=== PATIENT | female | born 1995 | race Caucasian/White ===

== ENCOUNTER 2023-03-29 18:27 | Emergency (ER) | payer OTHER, SELFPAY ==
[2023-03-29 18:45] VITALS: BP 135/85; PULSE 107; RESP 16; TEMP 37.6; O2SAT 100
[2023-03-29 18:47] VITALS: BP 135/85; PULSE 107; RESP 16; TEMP 37.6; O2SAT 100
--- NOTE | 2023-03-29 19:02 | ED.URI ---
HPI - URI/Sore Throat General Chief Complaint: Upper Respiratory Infection Stated Complaint: cold symptoms Time Seen by Provider: 03/29/23 18:50 Source: patient and RN notes reviewed Mode of arrival: ambulatory Limitations: no limitations History of Present Illness HPI Narrative: Patient presents today with a 3 day history of congestion, rhinorrhea, sore throat, cough, body aches, fever up to 101. Last episode of fever was last night. Denies shortness of breath. Patient has tried several [id number] medications for symptoms prior to arrival such as Sudafed, DayQuil, NyQuil, ibuprofen, Tylenol, which have provided some short-term relief. She currently rates her pain 2/10. Patient has history of sports induced asthma, but has not needed an inhaler since high school. She is a nonsmoker. Related Data Home Medications Medication Instructions Recorded Confirmed norgestimate 0.25 mg-ethinyl 1 tablet PO DAILY 03/29/23 03/29/23 estradiol 35 mcg tablet (Estarylla) Allergies Allergy/AdvReac Type Severity Reaction Status Date / Time Penicillins Allergy Hives Verified 03/29/23 18:45 Review of Systems Review of Systems: CONSTITUTIONAL: Denies chills, or sweats.+ body aches, fever EYES: Denies visual changes, redness, or discharge. ENT: Denies otalgia.+ rhinorrhea, congestion, sore throat CARDIOVASCULAR: Denies chest pain, palpitations, or edema. RESPIRATORY: Denies dyspnea.+ cough GASTROINTESTINAL: Denies abdominal pain, nausea, vomiting, or diarrhea. GENITOURINARY: Denies dysuria or hematuria. SKIN: Denies rash, itching, or wounds. MUSCULOSKELETAL: Denies back pain, joint pain, or myalgia. NEUROLOGIC: Denies headache, numbness, tingling, or weakness. PSYCH: Denies depression or anxiety. [facility] Past Medical History Medical History (Updated 03/29/23 @ 19:06 by Mary Beth Major, [employer], ) Exercise-induced asthma Comments At time of signature, I have reviewed and agree with nursing past medical, surgical, social and family history unless otherwise noted. Please see nursing chart for further information. There is no relevant family history pertinent to the presenting complaint Exam Narrative: GENERAL: Mildly ill-appearing, well-nourished, and in no acute distress. HEAD: Normocephalic, atraumatic. EYES: EOMI. No redness or drainage. Conjunctivae normal. ENT: Mucous membranes pink and moist. Nares congested with rhinorrhea. TMs normal bilaterally. Throat mildly erythematous without edema or exudate. Uvula midline. Hoarse voice NECK: Normal AROM. Supple. No lymphadenopathy. CHEST: No respiratory distress. Clear to auscultation. Harsh cough HEART: Regular rate and rhythm. No murmur appreciated. Normal peripheral pulses. EXTREMITIES: Normal range of motion. No edema. SKIN: Warm, dry, no rash. Capillary refill normal. Normal skin turgor. NEURO: No focal deficits. Alert and oriented x3. Gait steady. PSYCH: Normal affect. No signs of depression or anxiety. Course Course Level of Care: Express Care Visit Vital Signs Vital signs: Vital Signs Temperature 99.7 F H 03/29/23 18:45 Pulse Rate 107 H 03/29/23 18:45 Respiratory Rate 16 03/29/23 18:45 Blood Pressure 135/85 03/29/23 18:45 Pulse Oximetry 100 03/29/23 18:45 Oxygen Delivery Room Air 03/29/23 18:45 Temperature 99.7 F H 03/29/23 18:47 Pulse Rate 107 H 03/29/23 18:47 Respiratory Rate 16 03/29/23 18:47 Blood Pressure 135/85 03/29/23 18:47 Pulse Oximetry 100 03/29/23 18:47 Oxygen Delivery Room Air 03/29/23 18:47 Reviewed. Pt has been instructed to follow up with her PCP regarding her elevated blood pressure today. MDM - URI/Sore Throat MDM Narrative Medical decision making narrative: Symptoms consistent with viral upper respiratory infection, bronchitis, laryngitis. Will treat with prednisone and albuterol inhaler. Anticipatory guidance given. Differential Diagnosis Differential diagnosis: Adilia
== END 2023-03-29 19:10 | disposition home or self-care (01) ==
PROVIDERS: Emergency Provider Nurse Practitioner; PCP Family Medicine
DX: J40 Bronchitis, not specified as acute or chronic (principal); J06.9 Acute upper respiratory infection, unspecified; J45.990 Exercise induced bronchospasm
CPT/HCPCS: 99203; G0463